=== PATIENT | female | born 1960 | race Caucasian/White ===

== ENCOUNTER 2017-01-01 06:41 | Emergency (ER) | payer OTHER ==
[2017-01-01] MEDS ORDERED: DIPHTH,PERTUSS(ACELL),TET VAC 0.5 ML VIAL IM V ONE (07:43)
[2017-01-01] MEDS ORDERED: KETOROLAC TROMETHAMINE 30 MG/ML 1 ML VIAL ONE (07:43)
--- NOTE | 2017-01-01 08:35 | RAD ---
LEFT FOOT 3 VIEWS HISTORY: Left fifth toe injury. COMPARISONS: None. TECHNIQUE: Frontal, lateral, and oblique views of the left foot. ALIGNMENT: Grossly unremarkable. FRACTURE: No displaced acute fracture. Small calcification along medial aspects of the base of the fifth proximal phalanx on frontal view with minor lucency at lateral aspect of the oblique view. CALCANEUS: Evidence of calcaneal enthesophyte formation. SOFT TISSUES: Minor soft tissue prominence of the fifth toe. RADIOOPAQUE FOREIGN BODY: None. IMPRESSION: Contour abnormality and subtle lucency raises suspicion for nondisplaced fracture at the base of fifth proximal phalanx. Minor soft tissue swelling.
== END 2017-01-01 09:45 | disposition home or self-care (01) ==
LOC: ED 06:41
DX: S92.502A Displaced unspecified fracture of left lesser toe(s), initial encounter for closed fracture (principal); K21.9 Gastro-esophageal reflux disease without esophagitis; G89.29 Other chronic pain; M54.9 Dorsalgia, unspecified; M79.7 Fibromyalgia; E66.9 Obesity, unspecified; W18.39XA Other fall on same level, initial encounter; Y93.F1 Activity, caregiving, bathing; Y92.002 Bathroom of unspecified non-institutional (private) residence as the place of occurrence of the external cause; Y99.8 Other external cause status; Z79.82 Long term (current) use of aspirin; Z79.84 Long term (current) use of oral hypoglycemic drugs; Z79.899 Other long term (current) drug therapy; Z88.0 Allergy status to penicillin; Z23 Encounter for immunization
CPT/HCPCS: 90715; 73630; 90471; 99283 ×2; 96372; J1885